=== PATIENT | male | born 1965 | race Caucasian/White ===

== ENCOUNTER 2017-01-10 05:32 | Inpatient (IN) | payer BC, OTHER ==
[2017-01-10 06:17] LABS: CHLORIDE,CL 104 mmol/L (98-107); SODIUM,NA 141 mmol/L (136-145)
[2017-01-10] MEDS ORDERED: Morphine 10 MG/ML Syringe IVPUSH ONE ×2 (06:33→09:03)
[2017-01-10] MEDS ORDERED: Ondansetron 4 MG/2 ML SDV IVPUSH ONE (06:34)
[2017-01-10] MEDS: Sodium Chloride 0.9% 10 ML Syringe FLUSH PRN ×3 (06:41→15:57)
[2017-01-10] MEDS ORDERED: Ketorolac 30 MG/ML SDV IVPUSH ONE (06:43)
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
[2017-01-10] MEDS ORDERED: Bisacodyl 10 MG Supp RECTAL PRN (08:56)
[2017-01-10] MEDS ORDERED: Magnesium Hydroxide 400 MG/5 ML Susp 30 ML Cup PO PRN (08:56)
[2017-01-10] MEDS ORDERED: Acetaminophen 325 MG Tab PO PRN (09:00)
[2017-01-10] MEDS: Levothyroxine 50 MCG Tab PO SCH ×2 (09:38→09:40)
[2017-01-10] MEDS: Ketorolac 30 MG/ML SDV IVPUSH SCH ×2 (13:16→19:14)
[2017-01-10] MEDS: Morphine 4 MG/ML Syringe IVPUSH PRN ×2 (15:56→20:33)
--- NOTE | 2017-01-10 22:15 | PCM.SN ---
- Free Text/Narrative Note: of patient contacted , Orthopedist, concerning patient's injury. She relayed to us that was able to review patient's xrays remotely and feels that there is likely a non-displaced fracture of the greater trochanter as was originally suspected in the ER. He recommended that patient stay non-weightbearing on affected extremity for 3 weeks and will see the patient in his clinic next Sunday. The set up this appointment herself when speaking with .
[2017-01-11] MEDS: Ketorolac 30 MG/ML SDV IVPUSH SCH ×4 (01:39→19:03)
[2017-01-11] MEDS: Morphine 4 MG/ML Syringe IVPUSH PRN ×5 (06:08→21:57)
[2017-01-11] MEDS: Levothyroxine 50 MCG Tab PO SCH (07:07)
[2017-01-11] MEDS: Multivitamin Tab PO SCH (07:07)
[2017-01-11] MEDS: Citalopram 20 MG Tab PO SCH (07:07)
[2017-01-11] MEDS: Omeprazole 20 MG Cap.CR PO SCH (07:07)
[2017-01-11] MEDS: Sodium Chloride 0.9% 10 ML Syringe FLUSH PRN ×6 (07:10→21:57)
--- NOTE | 2017-01-11 15:58 | PCM.PN ---
- General Info Date of Service: 01/11/17 Functional Status: Reports: tolerating diet - Review of Systems General: Reports: No Symptoms HEENT: Reports: no symptoms Pulmonary: Reports: no symptoms Cardiovascular: Reports: No Symptoms Gastrointestinal: Reports: No symptoms Genitourinary: Reports: no symptoms Musculoskeletal: Reports: leg pain Skin: Reports: no symptoms Neurological: Reports: No Symptoms Psychiatric: Reports: no symptoms - Patient Data Vitals - most recent: Last Vital Signs Temp 97.9 F 01/11/17 07:01 Pulse 70 01/11/17 07:01 Resp 17 01/11/17 07:01 BP 114/75 01/11/17 07:01 Pulse Ox 96 01/11/17 10:00 Weight - most recent: 195 lb 8 oz I&O - last 24 hours: Intake & Output 01/11/17 01/11/17 01/11/17 06:59 14:59 22:59 Intake Total 450 Output Total 650 Balance -650 450 Med Orders - Current: Current Medications Acetaminophen (Tylenol) 650 mg PO Q4H PRN PRN Reason: analgesia/fever Bisacodyl (Dulcolax) 10 mg RECTAL DAILY PRN PRN Reason: Constipation Citalopram Hydrobromide (Celexa) 40 mg PO DAILY [facility] Last Admin: 01/11/17 07:07 Dose: 40 mg Ketorolac Tromethamine (Toradol) 30 mg IVPUSH Q6H [facility] Stop: 01/15/17 13:01 Last Admin: 01/11/17 12:52 Dose: 30 mg Levothyroxine Sodium (Synthroid) 50 mcg PO ACBRK [facility] Last Admin: 01/11/17 07:07 Dose: 50 mcg Magnesium Hydroxide (Milk Of Magnesia) 30 ml PO BID PRN PRN Reason: Constipation Morphine Sulfate (Morphine) 4 mg IVPUSH Q2H PRN PRN Reason: Pain Last Admin: 01/11/17 10:41 Dose: 4 mg Multivitamins/Minerals/Vitamin C (Tab-A-Nubia) 1 tab PO DAILY [facility] Last Admin: 01/11/17 07:07 Dose: 1 tab Omeprazole (Omeprazole) 20 mg PO DAILY [facility] Last Admin: 01/11/17 07:07 Dose: 20 mg Sodium Chloride (Saline Flush) 10 ml FLUSH ASDIRECTED PRN PRN Reason: Keep Vein Open Last Admin: 01/11/17 12:52 Dose: 10 ml Discontinued Medications Ketorolac Tromethamine (Toradol) 30 mg IVPUSH ONETIME ONE Stop: 01/10/17 06:44 Last Admin: 01/10/17 06:46 Dose: 30 mg Morphine Sulfate (Morphine) 5 mg IVPUSH ONETIME ONE Stop: 01/10/17 06:34 Last Admin: 01/10/17 06:39 Dose: 5 mg Morphine Sulfate (Morphine) 5 mg IVPUSH ONETIME ONE Stop: 01/10/17 09:04 Last Admin: 01/10/17 09:37 Dose: 5 mg Ondansetron HCl (Zofran) 4 mg IVPUSH ONETIME ONE Stop: 01/10/17 06:35 Last Admin: 01/10/17 06:39 Dose: 4 mg - Exam General: alert, oriented, cooperative HEENT: Pupils equal, Pupils reactive, EOMI, Mucous membr. moist/pink Neck: supple, trachea midline Lungs: Clear to auscultation, Normal respiratory effort Cardiovascular: Regular Rate, Regular Rhythm Abdomen: bowel sounds present, soft, no tenderness, no distension (Male) Exam: Deferred Back Exam: Normal Inspection Extremities: no edema, no calf tenderness, other (leg pain with any movement) Skin: warm, dry, intact Neurological: no new focal deficit Psy/Mental Status: alert, normal affect, normal mood - Problem List & Annotations (1) Nondisplaced intertrochanteric fracture of femur SNOMED Code(s): 407318391, 413732192 Code(s): S72.146A - NONDISPLACED INTERTROCHANTERIC FRACTURE OF UNSP FEMUR, INIT Status: Acute Priority: High Current Visit: Yes - Problem List Review Problem List Initiated/Reviewed/Updated: Yes - My Orders Last 24 Hours: My Active Orders 01/12/17 05:11 CBC WITH AUTO DIFF [HEME] Routine CMP [COMPREHENSIVE METABOLIC PN,CMP] [CHEM] Routine - Plan Plan:: 01/11/17 Rebecca Sherwood MD Still with significant pain in hip with any slight movement. Pain medication is helping make pain tolerable. Continue medical therapy. He has follow up appointment with Dr. Pineda Sunday.
[2017-01-12] MEDS: Ketorolac 30 MG/ML SDV IVPUSH SCH ×2 (00:43→07:21)
[2017-01-12] MEDS: Morphine 4 MG/ML Syringe IVPUSH PRN ×3 (00:43→07:24)
[2017-01-12] MEDS: Levothyroxine 50 MCG Tab PO SCH (07:20)
[2017-01-12] MEDS: Multivitamin Tab PO SCH (07:20)
[2017-01-12] MEDS: Citalopram 20 MG Tab PO SCH (07:21)
[2017-01-12] MEDS: Omeprazole 20 MG Cap.CR PO SCH (07:21)
[2017-01-12] MEDS: Sodium Chloride 0.9% 10 ML Syringe FLUSH PRN (07:22)
[2017-01-12 07:41] LABS: CHLORIDE,CL 101 mmol/L (98-107); SODIUM,NA 138 mmol/L (136-145)
[2017-01-12] MEDS ORDERED: Morphine 15 MG Tab PO PRN (10:00)
[2017-01-12 11:11] VITALS: BP 120/73
[2017-01-12] MEDS ORDERED: Naproxen 500 MG Tab PO ONE (12:00)
--- NOTE | 2017-01-12 14:17 | PCM.PN ---
- General Info Date of Service: 01/12/17 Functional Status: Reports: pain controlled, tolerating diet - Review of Systems General: Reports: No Symptoms HEENT: Reports: no symptoms Pulmonary: Reports: no symptoms Cardiovascular: Reports: No Symptoms Gastrointestinal: Reports: No symptoms Genitourinary: Reports: no symptoms Musculoskeletal: Reports: leg pain Skin: Reports: no symptoms Neurological: Reports: No Symptoms Psychiatric: Reports: no symptoms - Patient Data Vitals - most recent: Last Vital Signs Temp 97.4 F 01/12/17 08:00 Pulse 60 01/12/17 08:00 Resp 18 01/12/17 08:00 BP 120/73 01/12/17 08:00 Pulse Ox 97 01/12/17 10:00 Weight - most recent: 195 lb 8 oz I&O - last 24 hours: Intake & Output 01/11/17 01/12/17 01/12/17 22:59 06:59 14:59 Intake Total 400 600 400 Output Total 450 600 Balance -50 0 400 Lab Results last 24 hrs: Laboratory Results - last 24 hr 01/12/17 01/12/17 Range/Units 07:10 07:10 WBC 5.5 (4.0-10.2) K/uL RBC 5.22 (4.33-5.41) M/uL Hgb 14.7 (13.1-16.8) g/dL Hct 45.0 (39.0-49.0) % MCV 86.2 (84.0-98.0) fL MCH 28.2 (28.2-33.3) pg MCHC 32.7 (31.7-36.0) g/dL RDW 13.6 (11.2-14.1) % Plt Count 182 (150-350) K/uL Neut % (Auto) 47.4 (45.0-80.0) % Lymph % (Auto) 33.2 (10.0-50.0) % [place] % (Auto) 9.2 (2.0-14.0) % Eos % (Auto) 9.7 H (0.0-5.0) % Baso % (Auto) 0.5 (0.0-2.0) % Neut # (Auto) 2.59 (1.40-7.00) K/uL Lymph # (Auto) 1.81 (0.50-3.50) K/uL [place] # (Auto) 0.50 (0.00-1.00) K/uL Eos # (Auto) 0.53 H (0.00-0.50) K/uL Baso # (Auto) 0.03 (0.00-0.20) K/uL Sodium 138 (136-145) mmol/L Potassium 4.4 (3.5-5.1) mmol/L Chloride 101 (98-107) mmol/L Carbon Dioxide 32.6 H (21.0-32.0) mmol/L BUN 16 (7-18) mg/dL Creatinine 0.82 (0.51-1.17) mg/dL Est Cr Clr Drug Dosing 100.79 mL/min Estimated GFR (MDRD) > 60 mL/min Glucose 88 (74-106) mg/dL Calcium 8.4 L (8.5-10.1) mg/dL Total Bilirubin 0.5 (0.2-1.0) mg/dL AST 21 (15-37) U/L ALT 28 (12-78) U/L Alkaline Phosphatase 96 (46-116) IU/L Total Protein 7.1 (6.4-8.2) g/dL Albumin 3.4 (3.4-5.0) g/dL Med Orders - Current: Current Medications Acetaminophen (Tylenol) 650 mg PO Q4H PRN PRN Reason: analgesia/fever Bisacodyl (Dulcolax) 10 mg RECTAL DAILY PRN PRN Reason: Constipation Citalopram Hydrobromide (Celexa) 40 mg PO DAILY [facility] Last Admin: 01/12/17 07:21 Dose: 40 mg Levothyroxine Sodium (Synthroid) 50 mcg PO ACBRK [facility] Last Admin: 01/12/17 07:20 Dose: 50 mcg Magnesium Hydroxide (Milk Of Magnesia) 30 ml PO BID PRN PRN Reason: Constipation Morphine Sulfate (Morphine) 4 mg IVPUSH Q2H PRN PRN Reason: Pain Last Admin: 01/12/17 07:24 Dose: 4 mg Morphine Sulfate (Morphine) 7.5 mg PO Q4H PRN PRN Reason: Pain Multivitamins/Minerals/Vitamin C (Tab-A-Nubia) 1 tab PO DAILY [facility] Last Admin: 07/14/17 07:20 Dose: 1 tab Omeprazole (Omeprazole) 20 mg PO DAILY [facility] Last Admin: 01/12/17 07:21 Dose: 20 mg Sodium Chloride (Saline Flush) 10 ml FLUSH ASDIRECTED PRN PRN Reason: Keep Vein Open Last Admin: 01/12/17 07:22 Dose: 10 ml Discontinued Medications Ketorolac Tromethamine (Toradol) 30 mg IVPUSH ONETIME ONE Stop: 01/10/17 06:44 Last Admin: 01/10/17 06:46 Dose: 30 mg Ketorolac Tromethamine (Toradol) 30 mg IVPUSH Q6H [facility] Stop: 01/15/17 13:01 Last Admin: 01/12/17 07:21 Dose: 30 mg Morphine Sulfate (Morphine) 5 mg IVPUSH ONETIME ONE Stop: 01/10/17 06:34 Last Admin: 01/10/17 06:39 Dose: 5 mg Morphine Sulfate (Morphine) 5 mg IVPUSH ONETIME ONE Stop: 01/10/17 09:04 Last Admin: 01/10/17 09:37 Dose: 5 mg Naproxen (Naprosyn) 500 mg PO ONETIME ONE Stop: 01/12/17 12:01 Last Admin: 01/12/17 11:37 Dose: 500 mg Ondansetron HCl (Zofran) 4 mg IVPUSH ONETIME ONE Stop: 01/10/17 06:35 Last Admin: 01/10/17 06:39 Dose: 4 mg - Exam General: alert, oriented HEENT: Pupils equal, Pupils reactive, EOMI, Mucous membr. moist/pink Neck: supple, trachea midline, no JVD Lungs: Clear to auscultation, Normal respiratory effort Cardiovascular: Regular Rate, Regular Rhythm Abdomen: bowel sounds present, soft, no tenderness, no distension (Male) Exam: Deferred Back Exam: Normal Inspection Extremities: no edema, no calf tenderness, other (pain left hip) Skin: warm, dry, intact Wound/Incisions: healing well Neurological: no new focal deficit Psy/Mental Status: alert, normal affect, normal mood - Problem List & Annotations (1) Nondisplaced intertrochanteric fracture of femur SNOMED Code(s): 770240410, 131915975 Code(s): S72.146A - NONDISPLACED INTERTROCHANTERIC FRACTURE OF UNSP FEMUR, INIT Status: Acute Priority: High Current Visit: Yes Qualifiers: Laterality: left (2) GERD (gastroesophageal reflux disease) SNOMED Code(s): 390842747 Code(s): K21.9 - GASTRO-ESOPHAGEAL REFLUX DISEASE WITHOUT ESOPHAGITIS Status: Chronic Priority: Medium Current Visit: No Qualifiers: Esophagitis presence: esophagitis presence not specified Qualified Code(s) : K21.9 - Gastro-esophageal reflux disease without esophagitis (3) Hypothyroid SNOMED Code(s): 24901177 Code(s): E03.9 - HYPOTHYROIDISM, UNSPECIFIED Status: Chronic Priority: Low Current Visit: No Qualifiers: Hypothyroidism type: unspecified Qualified Code(s): E03.9 - Hypothyroidism , unspecified (4) Mood disorder Status: Chronic Current Visit: No - Problem List Review Problem List Initiated/Reviewed/Updated: Yes - My Orders Last 24 Hours: My Active Orders 01/12/17 10:00 Morphine 7.5 mg PO Q4H PRN 01/12/17 14:11 Discontinue Saline Lock [Peripheral IV Discontinue] [OM.PC] Routine - Plan Plan:: 01/11/17 Rebecca Sherwood MD Still with significant pain in hip with any slight movement. Pain medication is helping make pain tolerable. Continue medical therapy. He has follow up appointment with Dr. Pineda Sunday. 01/12/17 Rebecca Sherwood MD Doing okay. Wanting to go home. will be home to assist him. Appointment with Dr. Pineda on Sunday. Discussed pain pills and prophylaxis of DVT.
--- NOTE | 2017-01-12 14:29 | PCM.DCSUM1 ---
Discharge Summary - Discharge Data Discharge Date: 01/12/17 Discharge Disposition: Home, Self-Care 01 Condition: Good - Discharge Diagnosis/Problem(s) (1) Nondisplaced intertrochanteric fracture of femur SNOMED Code(s): 139459343, 074275716 ICD Code: S72.146A - NONDISPLACED INTERTROCHANTERIC FRACTURE OF UNSP FEMUR, INIT Status: Acute Priority: High Current Visit: Yes Qualifiers: Laterality: left (2) GERD (gastroesophageal reflux disease) SNOMED Code(s): 059153310 ICD Code: K21.9 - GASTRO-ESOPHAGEAL REFLUX DISEASE WITHOUT ESOPHAGITIS Status: Chronic Priority: Medium Current Visit: No Qualifiers: Esophagitis presence: esophagitis presence not specified Qualified Code(s) : K21.9 - Gastro-esophageal reflux disease without esophagitis (3) Hypothyroid SNOMED Code(s): 66635224 ICD Code: E03.9 - HYPOTHYROIDISM, UNSPECIFIED Status: Chronic Priority: Low Current Visit: No Qualifiers: Hypothyroidism type: unspecified Qualified Code(s): E03.9 - Hypothyroidism , unspecified (4) Mood disorder Status: Chronic Current Visit: No - Patient Summary/Data Consults: Consultations 01/10/17 09:02 OT Evaluation and Treatment [CONS] Routine PT Evaluation and Treatment [CONS] Routine - Patient Instructions Diet: Regular Diet as Tolerated Activity: As Tolerated, Non Weight Bearing (left lower extremity) Driving: Do Not Drive Showering/Bathing: May Shower Notify Provider of: Increased Pain, Nausea and/or Vomiting - Discharge Plan Prescriptions/Med Rec: Morphine 7.5 mg PO Q4H PRN #30 tablet PRN Reason: Pain Rivaroxaban [Xarelto] 10 mg PO DAILY #30 tablet Home Medications: Home Meds Citalopram [Citalopram HBr] 40 mg PO DAILY 05/20/14 [History] Levothyroxine [Synthroid] 50 mcg PO ACBRK 05/20/14 [History] Krill/Om-3/DHA/EPA/Phospho/Ast [Krill Oil 1,000 mg Softgel] 1 each PO DAILY [History] Multivitamin [Multi-Vitamin Daily] 1 tab PO DAILY 05/21/14 [History] Omeprazole 20 mg PO DAILY 01/10/17 [History] Morphine 7.5 mg PO Q4H PRN #30 tablet 01/12/17 [Rx] Rivaroxaban [Xarelto] 10 mg PO DAILY #30 tablet 01/12/17 [Rx] Patient Handouts: Ketorolac injection, Ondansetron injection, Contusion, Easy- to-Read, Morphine injection solution Forms: ED Department Discharge Referrals: José Luis Pineda MD [Physician] - Airam Arita PA [Primary Care Provider] - - Discharge Summary/Plan Comment DC Time >30 min.: No - Patient Data Vitals - Most Recent: Last Vital Signs Temp 97.4 F 01/12/17 08:00 Pulse 60 01/12/17 08:00 Resp 18 01/12/17 08:00 BP 120/73 01/12/17 08:00 Pulse Ox 97 01/12/17 10:00 Weight - Most Recent: 195 lb 8 oz I&O - Last 24 hours: Intake & Output 01/11/17 01/12/17 01/12/17 22:59 06:59 14:59 Intake Total 400 600 400 Output Total 450 600 Balance -50 0 400 Lab Results - Last 24 hrs: Laboratory Results - last 24 hr 01/12/17 01/12/17 Range/Units 07:10 07:10 WBC 5.5 (4.0-10.2) K/uL RBC 5.22 (4.33-5.41) M/uL Hgb 14.7 (13.1-16.8) g/dL Hct 45.0 (39.0-49.0) % MCV 86.2 (84.0-98.0) fL MCH 28.2 (28.2-33.3) pg MCHC 32.7 (31.7-36.0) g/dL RDW 13.6 (11.2-14.1) % Plt Count 182 (150-350) K/uL Neut % (Auto) 47.4 (45.0-80.0) % Lymph % (Auto) 33.2 (10.0-50.0) % Ballard % (Auto) 9.2 (2.0-14.0) % Eos % (Auto) 9.7 H (0.0-5.0) % Baso % (Auto) 0.5 (0.0-2.0) % Neut # (Auto) 2.59 (1.40-7.00) K/uL Lymph # (Auto) 1.81 (0.50-3.50) K/uL Ballard # (Auto) 0.50 (0.00-1.00) K/uL Eos # (Auto) 0.53 H (0.00-0.50) K/uL Baso # (Auto) 0.03 (0.00-0.20) K/uL Sodium 138 (136-145) mmol/L Potassium 4.4 (3.5-5.1) mmol/L Chloride 101 (98-107) mmol/L Carbon Dioxide 32.6 H (21.0-32.0) mmol/L BUN 16 (7-18) mg/dL Creatinine 0.82 (0.51-1.17) mg/dL Est Cr Clr Drug Dosing 100.79 mL/min Estimated GFR (MDRD) > 60 mL/min Glucose 88 (74-106) mg/dL Calcium 8.4 L (8.5-10.1) mg/dL Total Bilirubin 0.5 (0.2-1.0) mg/dL AST 21 (15-37) U/L ALT 28 (12-78) U/L Alkaline Phosphatase 96 (46-116) IU/L Total Protein 7.1 (6.4-8.2) g/dL Albumin 3.4 (3.4-5.0) g/dL Med Orders - Current: Current Medications Acetaminophen (Tylenol) 650 mg PO Q4H PRN PRN Reason: analgesia/fever Bisacodyl (Dulcolax) 10 mg RECTAL DAILY PRN PRN Reason: Constipation Citalopram Hydrobromide (Celexa) 40 mg PO DAILY [facility] Last Admin: 01/12/17 07:21 Dose: 40 mg Levothyroxine Sodium (Synthroid) 50 mcg PO ACBRK [facility] Last Admin: 01/12/17 07:20 Dose: 50 mcg Magnesium Hydroxide (Milk Of Magnesia) 30 ml PO BID PRN PRN Reason: Constipation Morphine Sulfate (Morphine) 4 mg IVPUSH Q2H PRN PRN Reason: Pain Last Admin: 01/12/17 07:24 Dose: 4 mg Morphine Sulfate (Morphine) 7.5 mg PO Q4H PRN PRN Reason: Pain Multivitamins/Minerals/Vitamin C (Tab-A-Nubia) 1 tab PO DAILY [facility] Last Admin: 01/12/17 07:20 Dose: 1 tab Omeprazole (Omeprazole) 20 mg PO DAILY [facility] Last Admin: 01/12/17 07:21 Dose: 20 mg Sodium Chloride (Saline Flush) 10 ml FLUSH ASDIRECTED PRN PRN Reason: Keep Vein Open Last Admin: 01/12/17 07:22 Dose: 10 ml Discontinued Medications Ketorolac Tromethamine (Toradol) 30 mg IVPUSH ONETIME ONE Stop: 01/10/17 06:44 Last Admin: 01/10/17 06:46 Dose: 30 mg Ketorolac Tromethamine (Toradol) 30 mg IVPUSH Q6H [facility] Stop: 01/15/17 13:01 Last Admin: 01/12/17 07:21 Dose: 30 mg Morphine Sulfate (Morphine) 5 mg IVPUSH ONETIME ONE Stop: 01/10/17 06:34 Last Admin: 01/10/17 06:39 Dose: 5 mg Morphine Sulfate (Morphine) 5 mg IVPUSH ONETIME ONE Stop: 01/10/17 09:04 Last Admin: 01/10/17 09:37 Dose: 5 mg Naproxen (Naprosyn) 500 mg PO ONETIME ONE Stop: 01/12/17 12:01 Last Admin: 01/12/17 11:37 Dose: 500 mg Ondansetron HCl (Zofran) 4 mg IVPUSH ONETIME ONE Stop: 01/10/17 06:35 Last Admin: 01/10/17 06:39 Dose: 4 mg *Q Meaningful Use (DIS) - VTE *Q VTE Criteria *Q: - Stroke *Q Stroke Criteria *Q: - AMI *Q AMI Criteria *Q:
== END 2017-01-12 16:10 | disposition home or self-care (01) | DRG 536 ==
LOC: LL.ED 05:32 → LL.MS 07:36
PROVIDERS: ADMIT Emergency Medicine; ATTEND Family Medicine
DX: S72.14 Intertrochanteric fracture of femur (principal); E03.9 Hypothyroidism, unspecified; K21.9 Gastro-esophageal reflux disease without esophagitis; F32.9 Major depressive disorder, single episode, unspecified; W19.XXXA Unspecified fall, initial encounter; Z91.018 Allergy to other foods; Z79.899 Other long term (current) drug therapy; Z96.643 Presence of artificial hip joint, bilateral; Z87.891 Personal history of nicotine dependence
CPT/HCPCS: 36415; 80053; 85025; 96374; 96375; 97110-GP; 97140-GP; 97161-GP; 99285; A9270-GY; J1885; J2270; J2405; J7050